=== PATIENT | female | born 1970 | race Caucasian/White ===

== ENCOUNTER → 2019-10-28 | Outpatient (CLI) | payer BC, SELFPAY ==
--- NOTE | 2019-10-28 08:59 | MRI_ITS ---
STUDY: MR RIGHT HIP ARTHROGRAPHY REASON FOR EXAM: Right hip pain for 6 months, no specific injury. TECHNIQUE: Standardized fat and water weighted pulse sequences were obtained in all 3 orthogonal planes after intra-articular instillation of 0.8 mL of dilute Dotarem. COMPARISON: Fluoroscopic image from arthrogram preceding the MRI. FINDINGS: Normal hip joint without articular joint space narrowing. Normal acetabulum. There is a tear of the anterosuperior labrum (T1 sagittal images 9, 10). Normal femoral head. Normal femoral neck and intratrochanteric region. Normal gluteus minimus, medius and iliopsoas tendons and distal insertions. There is no trochanteric, iliopsoas or iliopectineal bursitis. Normal superior and inferior pubic rami. Normal pubic symphysis. Normal ischial tuberosity. Normal origin of the hamstring tendons. Normal visualized iliac wing, sacroiliac joint, and sacral ala. Normal visualized soft tissue structures of the pelvis. MRI/Lower Ext/Jt Only/W Contrast IMPRESSION: Tear of the anterosuperior labrum. Electronically Signed: Alexis Ya MD at 12:25 EDT Tel , Service support ,
--- NOTE | 2019-10-28 09:03 | RAD_ITS ---
STUDY: Right hip injection with contrast for MRI REASON FOR EXAM: Female, 49 years old. PAIN, DECREASED RANGE OF MOTION -- 23 SECONDS -- 6.94 mGy -- 1 IMAGE RADIATION DOSAGE (If Supplied By Facility): CTDIvol = ( ) mGy, DLP = ( ) mGycm. Individualized dose optimization techniques were used for this CT.? FLUOROSCOPY TIME (if supplied): ( 20 )seconds TECHNIQUE: Fluoroscopic guidance COMPARISON: None. FINDINGS: After informed consent was obtained, the patient was placed in the supine position on the fluoroscopic table, and an appropriate site for right hip injection was determined using fluoroscopic guidance. The area was prepped and draped in a sterile manner and 2 present Xylocaine was used as local anesthetic. Under fluoroscopic guidance, a 22-gauge spinal needle was advanced into the right hip capsule without difficulty. Confirmation of the needle within the hip joint was performed with 2 to 3 mL of Isovue contrast. Then approximately 15 mL of gadolinium enhanced normal saline was advanced into the right hip capsule without difficulty. Patient tolerated the procedure well with no immediate complications and was sent to MRI for further imaging RAD/Arthrogram Hip w/ MRI IMPRESSION: Successful fluoroscopically guided right hip injection Electronically Signed: Franky Toledo MD at 10:15 EDT , Service support ,
== END | disposition home or self-care (01) ==
PROVIDERS: PCP Family Medicine; Referring Provider Orthopaedic Surgery; Visit Provider Orthopaedic Surgery
DX: M16.11 Unilateral primary osteoarthritis, right hip (principal)
CPT/HCPCS: 27093; 73722; 77002; A9575; Q9967